=== PATIENT | female | born 1985 | race Caucasian/White ===

== ENCOUNTER 2017-06-11 13:05 | Emergency (ER) | payer OTHER ==
[~2017-06-11] VITALS: Ht 162.6 cm; Wt 91.6 kg
[2017-06-11 13:31] VITALS: BP 100/61
--- NOTE | 2017-06-11 13:37 | NUR ---
PT TRIAGED. PT WHEELCHAIRED IN ER LOBBY WAITING FOR BED. ERMD NOTIFIED OF PATIENT STATUS.
--- NOTE | 2017-06-11 15:34 | NUR ---
PT TRIAGED, WAITING FOR ER BED. ERMD AWARE OF PATIENT STATUS.
--- NOTE | 2017-06-11 17:50 | NUR ---
31 PRESENT TO ER C/O LT LOWER EXTREMITY PAIN/ANKLE x YESTERDAY. PT STATES SHE TWISTED HER ANKLE YESTERDAY. HX: SCIATICA.MEDS: HYDROCODONE 5/325MG AND MOTRIN 600MG. AAOX4 WITH EVEN AND UNSTEADY GAIT; LUNGS CLEAR BL; HR EVEN AND REGULAR; PT DENIES ANY FEVER, CP, SOB, OR COUGH AT THIS TIME; PATIENT STATES PAIN OF 10/10 AT THIS TIME;
[2017-06-11 18:37] VITALS: BP 121/75
--- NOTE | 2017-06-11 18:37 | NUR ---
Patient discharged with v/s stable. Written and verbal after care instructions given and explained. Patient alert, oriented and verbalized understanding of instructions. Ambulatory with steady gait. All questions addressed prior to discharge. ID band removed. Patient advised to follow up with PMD. Rx of MEDROL given. Patient educated on indication of medication including possible reaction and side effects. Opportunity to ask questions provided and answered.
== END 2017-06-11 18:37 | disposition home or self-care (01) ==
LOC: MED 13:05
DX: S93.402A Sprain of unspecified ligament of left ankle, initial encounter (principal); M54.32 Sciatica, left side; W50.2XXA Accidental twist by another person, initial encounter; Y93.89 Activity, other specified; Y92.89 Other specified places as the place of occurrence of the external cause; Y99.8 Other external cause status
CPT/HCPCS: 29515; 73610; 99284